=== PATIENT | female | born 1955 | race Caucasian/White ===

== ENCOUNTER 2025-10-07 08:45 | Day surgery (SDC) | payer OTHER ==
[2025-10-06 15:25] VITALS: BMI 23.1
[~2025-10-07 08:45] MED LIST: Fluorouracil 100 MG, Enoxaparin 25 MG, EPINEPHrine 0.3 MG, Dextrose 50% 3 ML in Ophthal... IRR SCH
[2025-10-07] MEDS ORDERED: Cyclopentolate 1% Opth Drop 2 ML BOT ONE (09:57)
[2025-10-07 10:00] LABS: Anion Gap 12 mmol/L (10-20); BUN (Urea Nitrogen) 19 mg/dL (9.8-20.1); Calc. Creatinine Clearance 101 mL/min (70-130); Calcium 9.5 mg/dL (7.8-10.44); Carbon Dioxide 25 mmol/L (23-31); Chloride 104 mmol/L (98-107); Glucose 103 mg/dL (80-115); Potassium 4.0 mmol/L (3.5-5.1); Sodium 137 mmol/L (136-145)
[2025-10-07] MEDS ORDERED: Lidocaine 1% PF 5 ML VIAL ONE ×2 (10:03→11:08)
[2025-10-07] MEDS ORDERED: Dextrose 50% Abboject 50 ML SYRINGE ONE (11:08)
[2025-10-07] MEDS ORDERED: Maxitrol 0.1% Opth Oint 3.5 GM TUBE ONE (11:08)
[2025-10-07] MEDS ORDERED: TISSUEBLUE 0.5 ML SYRINGE IO ONE (11:08)
[2025-10-07] MEDS ORDERED: Lidocaine 4% PF 5 ML AMP ONE (11:08)
[2025-10-07] MEDS ORDERED: CEFAZOLIN 1 GM VIAL ONE (11:08)
[2025-10-07] MEDS ORDERED: Enoxaparin 30 MG (0.3 mL) SYRINGE ONE (11:08)
[2025-10-07] MEDS ORDERED: hydrALAZINE 20 MG/ML VIAL ONE (12:30)
== END 2025-10-07 13:12 | disposition home or self-care (01) ==
LOC: SDC 08:45
PROVIDERS: ATTEND Ophthalmology Retina Specialist
PROC: 08B43ZZ Excision of Right Vitreous, Percutaneous Approach (ICD-10-PCS; principal; 2025-10-07)
DX: H35.341 Macular cyst, hole, or pseudohole, right eye (principal)
CPT/HCPCS: 67025; 67042; 80048; 93005; J0166; J0360; J0690; J1650; J2250; J3010; J3301; J3490; J7999; J9190; 93010